=== PATIENT | male | born 1970 | race Two or more races ===

== ENCOUNTER 2024-12-12 16:07 | Emergency (ER) | payer MEDICAID, SELFPAY ==
[2024-12-12 16:48] VITALS: BP 116/77; PULSE 90; RESP 16; TEMP 37.4; O2SAT 96; BMI 30.7
--- NOTE | 2024-12-12 17:01 | PD.EDANKLE ---
Lower Extremity Injury RME/HPI General Chief Complaint: Ankle/Foot Injury Stated Complaint: POSSIBLE INFECTION TO LEFT FOOT Time Seen by Provider: 12/12/24 16:14 Arrival date/time: 12/12/24 16:07 RME / HPI RME / HPI Narrative: 53-year-old male patient with significant history of diabetes mellitus, came in for evaluation regarding open blister to the left metatarsophalangeal area. This been ongoing for the last 1 week severity of symptoms mild. Incident happened after ER working a lot on the hard boot. Patient told me that he is walking at least 10 miles a day. Denies any other complaints no fever. Related Data Home Medications ?Medication ?Instructions ?Recorded ?Confirmed brimonidine 0.15 % eye drops 1 drp ophthalmic (eye) Q8H 01/17/24 02/16/24 (Alphagan P) dorzolamide 2 %-timolol 0.5 % (PF) 1 drp ophthalmic (eye) BID glaucoma 01/17/24 02/16/24 eye drops latanoprost 0.005 % eye drops 1 drp ophthalmic (eye) QPM 01/17/24 02/16/24 Previous Rx's ?Medication ?Instructions ?Recorded ascorbic acid (vitamin C) 500 mg 500 mg PO BID #30 caps 01/23/24 capsule atorvastatin 40 mg tablet 40 mg PO HS #30 tabs 01/23/24 ceftriaxone 2 gram solution for 2 g IV Q24H #38 ea 01/23/24 injection doxycycline hyclate 100 mg tablet 100 mg PO BID #76 tabs 01/23/24 folic acid 1 mg tablet 1 mg PO BID #60 tabs 01/23/24 multivitamin with folic acid 400 1 tab PO QDAY #30 tabs 01/23/24 mcg tablet (Tab-A-Taj) thiamine mononitrate (vit B1) 100 100 mg PO BID #60 tabs 01/23/24 mg tablet zinc sulfate 50 mg zinc (220 mg) 220 mg (4.4 x 50 mg zinc (220 mg)) 01/23/24 tablet PO QDAY #30 tabs metformin 1,000 mg tablet 1,000 mg PO BID #60 tabs 01/24/24 empagliflozin 25 mg tablet 25 mg PO QDAY diabetes #30 tabs 01/26/24 (Jardiance) semaglutide 3 mg tablet (Rybelsus) 3 mg PO QDAY Diabetes Mellitus 30 02/16/24 days #30 tabs doxycycline hyclate 100 mg tablet 100 mg PO BID #14 tabs 12/12/24 Allergies Allergy/AdvReac Type Severity Reaction Status Date / Time No Known Allergies Allergy Verified 02/16/24 14:35 Review of Systems Review of Systems Narrative Review of Systems: Review of system reviewed and within normal limits except mentioned in HPI ED Exam Narrative Physical exam: VITAL SIGNS: Reviewed. GENERAL APPEARANCE: Alert and interactive, follows commands, no acute distress, HEAD AND FACE: Non-traumatic. ENT: PERRL, pink conjunctivitis, eyelid no trauma, Mucous membrane moist. NECK: Supple, nontender, no nuchal rigidity. CHEST: No tenderness, no crepitus, no paradoxical movement, no retractions. LUNGS: Clear, well ventilated, symmetric, no rales, no wheezing, no ronchi, no stridor, good breath sounds bilaterally. HEART: Regular rate, regular rhythm, no murmur, no gallops. ABDOMEN: Soft, positive bowel sounds, nondistended, no guarding, nontender, no rebound, no masses, RECTAL: Deferred. GENITAL: Deferred. NEUROLOGICAL: Gross motor function intact sensory function intact, Appropriate for age. MUSCULOSKELETAL: low back nontender, full range of motion. EXTREMITIES:+ [place] size open wound metatarsophalangeal area, mild redness no drainage noted, left nontender, full range of motion. SKIN: Color pink, dry, no rash, no lacerations, no abrasions, no contusions. LYMPHATICS: Deferred. Course Quality Measures none Orders Category Date Time Status Doxycycline [Vibramycin] Med 12/12/24 17:01 Discontinued 100 mg PO X1 ONE Vital Signs Vital signs: Vital Signs Temperature 99.4 F 12/12/24 16:48 Pulse Rate 90 12/12/24 16:48 Respiratory Rate 16 12/12/24 16:48 Blood Pressure 116/77 12/12/24 16:48 Pulse Oximetry (%) 96 12/12/24 16:48 Oxygen Delivery Method Room Air 12/12/24 16:48 Extremity Injury, Lower MDM Narrative MDM Narrative:: 53-year-old male patient with significant history of diabetes mellitus, came in for evaluation regarding open blister to the left metatarsophalangeal area. This been ongoing for the last 1 week severity of symptoms mild. Incident happened after ER working a lot on the hard boot. Patient told me that he is walking at least 10 miles a day. Denies any other complaints no fever. Imaging or workup not needed at this time. Wound is not grossly infected. Patient was given doxycycline p.o. in the emergency room and dressing applied. With bacitracin Patient data External records reviewed:: None Clinical information provided by:: patient and family Social determinants that could affect healthcare access:: none Patient has the following chronic illnesses:: None How is presenting disease/condition affected by chronic disease/condition?: no chronic disease Evaluation data The following diagnostics were reviewed and interpreted by me:: lab results Lab and/or radiology exams considered but not ordered:: None Interpretation Summary: None Medications / Prescriptions Medications or Prescriptions considered but not ordered:: None Medication administrations:: Medication Administration History Discontinued Medications Doxycycline Hyclate (Doxycycline 100 Mg Tablet) 100 mg PO X1 ONE Stop: 12/12/24 17:02 Last Admin: 12/12/24 17:59 Dose: 100 mg Documented By: Doxycycline Consultations Consultation(s) initiated? (list below): No Diagnosis Extremity Injury, Lower Differential Diagnosis: other (Foot blister, diabetic foot infection,) Most likely diagnosis given after review of the tests above:: Diabetic foot infection Admission Indicated Admission indicated?: not indicated Admission Request Was there a request for admission?: No Disposition Plan Disposition Plan: Discharge Discharge Attestation Discharge Attestation: The patient and all family members were given an opportunity to ask questions and understood the discharge instructions. Discharge instructions specifically effects, indications for sooner follow up or return to the emergency department, and the expected course of current diagnosis. Patient condition: Stable Discharge Plan Plan Patient Disposition: HOME (Self Care) Disposition Comment: stable Prescriptions/Referrals Prescriptions/Med Rec: New doxycycline hyclate 100 mg tablet 100 mg PO BID Qty: 14 0RF No Action Rybelsus 3 mg tablet 3 mg PO QDAY MDD 3 mg 30 Days Qty: 30 2RF Jardiance 25 mg tablet 25 mg PO QDAY MDD 25 mg Qty: 30 5RF dorzolamide-timolol (PF) 2-0.5 % Drops 1 drp OPHTHALMIC (EYE) BID brimonidine [Alphagan P] 0.15 % Drops 1 drp OPHTHALMIC (EYE) Q8H latanoprost 0.005 % Drops 1 drp OPHTHALMIC (EYE) QPM ascorbic acid (vitamin C) 500 mg capsule 500 mg PO BID Qty: 30 0RF atorvastatin 40 mg tablet 40 mg PO HS Qty: 30 0RF ceftriaxone 2 gram recon soln 2 g IV Q24H Qty: 38 0RF folic acid 1 mg Tablet 1 mg PO BID Qty: 60 0RF doxycycline hyclate 100 mg Tablet 100 mg PO BID Qty: 76 0RF thiamine mononitrate (vit B1) 100 mg Tablet 100 mg PO BID Qty: 60 0RF multivitamin with folic acid [Tab-A-Taj] 400 mcg Tablet 1 tab PO QDAY Qty: 30 0RF zinc sulfate 50 mg zinc (220 mg) tablet 220 mg PO QDAY Qty: 30 0RF metformin 1,000 mg Tablet 1,000 mg PO BID Qty: 60 0RF Referrals: No Primary/Family,Physician [Primary Care Provider] - In 1 week Problem List Clinical Impression: Diabetic foot infection Patient/Caregiver Discharge Instructions Discharge Activity: activity as tolerated Education Materials: ED Diabetic Foot Care Additional Instructions: Thank you for the opportunity for serving you today. You are stable for discharged . You are advised to: Follow-up with your PCP in 1 to 2 days and asked for referral to psychiatric therapist Return to ED for worsening of symptoms Increase oral fluids Take medication as prescribed Always protect your wound from pressure, do not wear tight fitting shoes Print Language: Kazakh Stand Alone Forms: Kristi Award Info., Patient Portal Info Letter RAPHAEL/GEMINI Supervising Physician RAPHAEL/GEMINI Supervising Physician: MD Yamilex
[2024-12-12 17:58] VITALS: BP 118/79; PULSE 93; RESP 17; TEMP 37.2; O2SAT 96
[2024-12-12] MEDS: DOXYCYCLINE 100 MG TABLET PO (17:59)
== END 2024-12-12 18:12 | disposition home or self-care (01) ==
PROVIDERS: Emergency Provider Emergency Medicine
DX: E11.69 Type 2 diabetes mellitus with other specified complication (principal); L08.9 Local infection of the skin and subcutaneous tissue, unspecified; Z79.84 Long term (current) use of oral hypoglycemic drugs
CPT/HCPCS: 99282; A9270